=== PATIENT | male | born 1980 | race American Indian/Alaskan Native ===

== ENCOUNTER → 2017-01-04 | Emergency (ER) | payer SELFPAY ==
[2017-01-04 21:52] VITALS: BP 156/93
--- NOTE | 2017-01-04 23:26 | Emergency Department Report ---
Chief Complaint: Urogenital-Male Stated Complaint: UTI Time Seen by Provider: 01/04/17 23:25 - HPI History of Present Illness: 36-year-old male presents today with penile discharge 3 days. Positive for unprotected sex and states that his partner recently got diagnosed with chlamydia. Positive for minimal burning upon urination and increased urinary frequency. Denies urinary urgency or blood in urine. Denies fever, chills, visual changes, headache, nausea, vomiting, chest pain, shortness of breath, abdominal pain. - ROS Review of Systems: Per HPI - Exam Vital Signs: Vital Signs 01/04/17 21:47 Temperature 97.9 F Pulse Rate 87 Respiratory 16 Rate Blood Pressure 156/93 O2 Sat by Pulse 100 Oximetry Physical Exam: General: 28-year-old male in no acute distress. Well-developed, well-nourished. CV: Regular rate and rhythm. No murmurs rubs or gallops. Lungs: Clear to auscultation bilaterally. Abdomen: No tenderness to palpation. No guarding or rebound tenderness. Normal bowel sounds. Negative for CVA tenderness bilaterally. Mini Neuro: Alert and oriented 3. GCS at 15. MSE screening note: Focused history and physical exam performed. Due to findings the following was ordered: ED Disposition for MSE Disposition: MEDICAL SCREENING EXAM-LEFT Condition: Stable Referrals: PRIMARY CARE, [Primary Care Provider] - 3-5 Days
== END | disposition left against medical advice (07) ==
LOC: ED 19:58
DX: R36.9 Urethral discharge, unspecified (principal); Z53.21 Procedure and treatment not carried out due to patient leaving prior to being seen by health care provider
CPT/HCPCS: 87086

== ENCOUNTER 2022-07-16 10:16 | Emergency (ER) | payer SELFPAY | END 2022-07-16 12:20 | disposition left against medical advice (07) | LOC: ED 10:16 | DX: R10.30 Lower abdominal pain, unspecified (principal); Z53.21 Procedure and treatment not carried out due to patient leaving prior to being seen by health care provider ==